=== PATIENT | female | born 1965 | race Caucasian/White ===

== ENCOUNTER 2018-11-25 12:17 | Emergency (ER) | payer OTHER ==
[2018-11-25 12:39] VITALS: RESP 18
[2018-11-25] MEDS ORDERED: KETOROLAC 30 MG/ML 1 ML VIAL IVP STA (13:05)
--- NOTE | 2018-11-25 13:11 | ED ---
General Adult HPI - General Chief complaint: Recheck/Abnormal Lab/Rx Stated complaint: high blood pressure Time Seen by Provider: 11/25/18 12:50 Source: patient Mode of arrival: ambulatory Limitations: no limitations - History of Present Illness Initial comments: Patient presents with a chief complaint of right eye watering, and periorbital edema. Patient states that she has been having mild headaches over this eye for about the last 2 weeks. She states that since Monday, the eye watering and swelling getting worse. She cannot identify an inciting incident. There are no aggravating or alleviating factors. Timing is intermittent. Patient also states that she is having some visual changes however she attributes this to her watering eye. She states it is worse in the morning that resolves throughout the day. She denies any sick contacts, she denies chest pain, shortness of breath, nausea or vomiting. Patient was initially seen at [facility] both transferred to this hospital because she had a hypertensive blood pressure reading. She was told it was 200/100, in the emergency department today she is mildly hypertensive with a blood pressure of 165 systolic, heart rate of 120 however the patient is very anxious appearing. - Related Data Home Medications Medication Instructions Recorded Confirmed Aloe Vera 25 mg PO DAILY 11/25/18 11/25/18 Ascorbic Acid [Vitamin C] 1,000 mg PO DAILY 11/25/18 11/25/18 Biotin 5 mg PO DAILY 11/25/18 11/25/18 Calcium Carbonate [Calcium] 600 mg PO DAILY 11/25/18 11/25/18 Ferrous Sulfate [Iron (65 MG 325 mg PO DAILY 11/25/18 11/25/18 Elemental)] Previous Rx's Medication Instructions Recorded Ciprofloxacin-Hc Otic Susp [Cipro 1 drops RIGHT EYE Q3H 5 Days #1 11/25/18 Hc Otic Suspension] bottle Allergies Allergy/AdvReac Type Severity Reaction Status Date / Time No Known Allergies Allergy Verified 11/25/18 13:14 Review of Systems ROS Statement: Those systems with pertinent positive or pertinent negative responses have been documented in the HPI. ROS Other: All systems not noted in ROS Statement are negative. Eyes: Reports: eye pain, eye discharge, vision change Neurological: Reports: headache Past Medical History Past Medical History: No Reported History History of Any Multi-Drug Resistant Organisms: None Reported Past Surgical History: No Surgical Hx Reported Past Psychological History: No Psychological Hx Reported Smoking Status: Current every day smoker Past Alcohol Use History: Daily Past Drug Use History: None Reported General Exam Limitations: no limitations General appearance: alert, in no apparent distress, anxious Head exam: Present: atraumatic, normocephalic Eye exam: Present: PERRL, EOMI, conjunctival injection, periorbital swelling. Absent: nystagmus, periorbital tenderness Pupils: Present: normal accommodation, other (there is erythema and chemosis of the right eye, no pain with EOM, vision grossly intact. drainage is clear, no evidence of purulence ) ENT exam: Present: normal exam, mucous membranes moist, normal external ear exam, other (bilateral earwax impactions ) Neck exam: Present: normal inspection. Absent: tenderness Respiratory exam: Present: normal lung sounds bilaterally. Absent: respiratory distress, wheezes Cardiovascular Exam: Present: normal rhythm, tachycardia GI/Abdominal exam: Present: soft. Absent: distended, tenderness Rectal exam: Present: deferred Extremities exam: Present: normal inspection Back exam: Present: normal inspection Neurological exam: Present: alert, oriented X3, CN II-XII intact, normal gait Psychiatric exam: Present: normal affect, normal mood Skin exam: Present: warm, dry, intact Course Vital Signs 11/25/18 11/25/18 11/25/18 12:35 14:10 15:22 Temperature 98.4 F Pulse Rate 120 H 104 H 86 Respiratory 18 18 18 Rate Blood Pressure 165/89 156/98 175/95 O2 Sat by Pulse 98 98 98 Oximetry Medical Decision Making - Medical Decision Making Patient presents with a chief complaint of eye watering periorbital edema. On initial evaluation, patient was tachycardic and mildly hypertensive likely secondary to anxiety. Patient was sent over from [facility] for hypertension. She reports her blood pressure was 200/100, very much improved without intervention in the emergency department. History and physical examination is most consistent with viral conjunctivitis however given timeframe, patient will be evaluated basic labs, computed tomography scan of the orbits to rule out infection. 3:36 PM lab evaluation of this patient is unremarkable. WBCs are 13,000. CT evaluation of the head and orbits shows no acute process. repeat neuro exam is unchanged, EOM intact, pupils equal round and reactive. considered cavernous venous thrombosis however at this point exam seems benign, labs do not support infection, and CT exam is normal. I discussed concerning signs and symptoms that should prompt immediate return to the ED with the patient, her fiance, and her son. she verbalizes understanding. she was prescribed cipro drops. patient referred to ophthalmology, and primary care. follow up in 1-2 days. - Lab Data Result diagrams: 11/25/18 13:30 11/25/18 13:30 Lab Results 11/25/18 11/25/18 Range/Units 13:30 13:30 WBC 13.0 H (3.8-10.6) k/uL RBC 4.28 (3.80-5.40) m/uL Hgb 12.9 (11.4-16.0) gm/dL Hct 38.9 (34.0-46.0) % MCV 90.8 (80.0-100.0) fL MCH 30.2 (25.0-35.0) pg MCHC 33.3 (31.0-37.0) g/dL RDW 14.1 (11.5-15.5) % Plt Count 405 (150-450) k/uL Neutrophils % 85 % Lymphocytes % 9 % Monocytes % 4 % Eosinophils % 1 % Basophils % 0 % Neutrophils # 11.1 H (1.3-7.7) k/uL Lymphocytes # 1.2 (1.0-4.8) k/uL Monocytes # 0.5 (0-1.0) k/uL Eosinophils # 0.1 (0-0.7) k/uL Basophils # 0.0 (0-0.2) k/uL Sodium 141 (137-145) mmol/L Potassium 4.4 (3.5-5.1) mmol/L Chloride 108 H (98-107) mmol/L Carbon Dioxide 22 (22-30) mmol/L Anion Gap 11 mmol/L BUN 10 (7-17) mg/dL Creatinine 0.94 (0.52-1.04) mg/dL Est GFR (CKD-EPI)AfAm 80 (>60 ml/min/1.73 sqM) Est GFR (CKD-EPI)NonAf 70 (>60 ml/min/1.73 sqM) Glucose 99 (74-99) mg/dL Calcium 10.3 H (8.4-10.2) mg/dL Disposition Clinical Impression: Conjunctivitis, Hypertension Disposition: HOME SELF-CARE Condition: Good Prescriptions: Ciprofloxacin-Hc Otic Susp [Cipro Hc Otic Suspension] 1 drops RIGHT EYE Q3H 5 Days #1 bottle Is patient prescribed a controlled substance at d/c from ED?: No Referrals: None,Stated [Primary Care Provider] - 1-2 days Shannon Gayle MD [STAFF PHYSICIAN] - 1-2 days Gordon Lopez MD [STAFF PHYSICIAN] - 1-2 days
[2018-11-25 13:49] LABS: Basophils % (A) 0 %; Eosinophils # (A) 0.1 k/uL (0-0.7); Eosinophils % (A) 1 %; HCT 38.9 % (34.0-46.0); HGB 12.9 gm/dL (11.4-16.0); Lymphocytes # (A) 1.2 k/uL (1.0-4.8); Lymphocytes % (A) 9 %; MCH 30.2 pg (25.0-35.0); MCHC 33.3 g/dL (31.0-37.0); MCV 90.8 fL (80.0-100.0); Mean Platelet Volume 7.2; Monocytes # (A) 0.5 k/uL (0-1.0); Monocytes % (A) 4 %; Neutrophils # (A) 11.1 k/uL (1.3-7.7); Neutrophils % (A) 85 %; Platelet Count 405 k/uL (150-450); RBC 4.28 m/uL (3.80-5.40); RDW 14.1 % (11.5-15.5)
[2018-11-25 14:04] LABS: Calcium 10.3 mg/dL (8.4-10.2)
[2018-11-25 14:06] LABS: Potassium 4.4 mmol/L (3.5-5.1)
--- NOTE | 2018-11-25 15:20 | CT ---
EXAMINATION TYPE: CT brain wo con, CT orbits w con DATE OF EXAM: 11/25/2018 HISTORY: Pt c/o headache, sent by [facility] for 200/100 bp. Pt also has RT eye swelling and pain CT DLP: 1068.4 (accession [id number]), 232.6 (accession [id number]) mGycm. Automated Exposure Control fo r Dose Reduction was Utilized. TECHNIQUE: CT scan of the head is performed without contrast. CT of orbits is performed with IV contr ast. COMPARISON: None. FINDINGS: There is no acute intracranial hemorrhage or midline shift identified. Ventricles and sul ci are normal in size. Lu-white matter differentiation is fairly well maintained. The calvarium is intact. Orbital floors and bradshaw are intact. The globes are intact bilaterally. Intraconal fat is preserved b ilaterally. Facial bones are intact. Visualized portion of the [place] shows no obvious aneu rysm. IMPRESSION: 1. No acute intracranial hemorrhage or midline shift. 2. No suspicious intraorbital mass or findings.
[2018-11-25 16:22] VITALS: BP 140/80; PULSE 80; TEMP 98
== END 2018-11-25 16:27 | disposition home or self-care (01) ==
LOC: EC 12:17
DX: I10 Essential (primary) hypertension (principal); H10.9 Unspecified conjunctivitis; F17.200 Nicotine dependence, unspecified, uncomplicated
CPT/HCPCS: 36415; 80048; 85025; 70450; 70481; 99284; 96374; J1885; Q9967

== ENCOUNTER → 2019-02-22 | Outpatient (CLI) | payer BC ==
--- NOTE | 2019-02-22 16:14 | XR ---
Left RIBS and chest x-ray HISTORY: Chest pain and difficulty breathing 4 views of the left ribs, 2 views the chest are submitted, no comparison Cardiomediastinal silhouette, pulmonary vascularity and babatunde within normal limits. No evident airspac e disease, pneumothorax, or pleural effusion. No evident displaced rib fracture. There is a mild spin al curvature. IMPRESSION: No acute abnormality.
== END | disposition home or self-care (01) ==
LOC: RADXRMAIN 10:36
PROVIDERS: ATTEND Nurse Practitioner Adult Health
DX: R07.9 Chest pain, unspecified (principal); R06.00 Dyspnea, unspecified; R10.12 Left upper quadrant pain
CPT/HCPCS: 71046

== ENCOUNTER → 2022-05-04 | Outpatient (CLI) | payer BC ==
[2022-05-04 18:14] LABS: Basophils # (A) 0.02 X 10*3/uL (0.00-0.10); Basophils % (A) 0.4 %; Eosinophils # (A) 0.04 X 10*3/uL (0.04-0.35); Eosinophils % (A) 0.8 %; HCT 29.8 % (37.2-46.3); HGB 9.9 g/dL (12.0-15.0); Immature Grans, Automated 0.2 %; Lymphocytes # (A) 0.69 X 10*3/uL (0.90-5.00); Lymphocytes % (A) 14.1 %; MCHC 33.2 g/dL (32.0-37.0); MCV 108.4 fL (80.0-97.0); Mean Platelet Volume 10.2 fL (9.5-12.2); Monocytes # (A) 0.34 X 10*3/uL (0.20-1.00); NRBC Per 100 WBC 0 /100 WBCS (0.0-0.0); Neutrophils # (A) 3.78 X 10*3/uL (1.80-7.70); Neutrophils % (A) 77.5 %; Platelet Count 367 X 10*3/uL (140-440); RBC 2.75 X 10*6/uL (4.10-5.20); RDW 15.7 % (11.5-14.5); WBC 4.88 X 10*3/uL (4.50-10.00)
[2022-05-04 18:22] LABS: Erythrocyte Sedimentation Rate 13 mm/Hr (0-30)
[2022-05-04 19:19] LABS: % Iron Saturation 28.69 (12.00-45.00); ALT 19 U/L (8-44); AST 13 U/L (13-35); African American GFR (CKD) 72.4 (60.0-200.0); Albumin 4.6 g/dL (3.8-4.9); Albumin/Globulin Ratio 2.09 (1.60-3.17); Alkaline Phosphatase 62 U/L (41-126); Bilirubin, Conjugated <0.20 mg/dL (0.20-0.40); Calcium 9.4 mg/dL (8.7-10.3); Carbon Dioxide 24.7 mmol/L (20.0-27.5); Chloride 106 mmol/L (96-109); Globulin 2.2 g/dL (1.6-3.3); Glucose 106 mg/dL (70-110); Iron 95 ug/dL (50-170); Non-African American GFR(CKD) 62.5 (60.0-200.0); Potassium 4.4 mmol/L (3.5-5.5); Sodium 141 mmol/L (135-145); Total Iron Binding Capacity 330 ug/dL (228-460); Total Protein 6.8 g/dL (6.2-8.2)
== END | disposition home or self-care (01) ==
LOC: LABWHC1 12:29
DX: D53.9 Nutritional anemia, unspecified (principal); D63.8 Anemia in other chronic diseases classified elsewhere; D61.9 Aplastic anemia, unspecified
CPT/HCPCS: 36415; 80053; 82248; 82607; 82668; 82728; 82746; 83540; 83550; 84466; 85025; 85652; 86038; 86039

== ENCOUNTER → 2022-05-04 | Outpatient (CLI) | payer BC ==
--- NOTE | 2022-05-04 13:53 | XR ---
EXAMINATION TYPE: XR knee 4V LT DATE OF EXAM: 05/04/2022 COMPARISON: NONE HISTORY: Palpable abnormality TECHNIQUE: Three views are submitted. FINDINGS: There is a moderate sized patellar bursal fluid collection. There is mild narrowing of the patellofem oral joint and medial compartment knee joint. There is sclerosis and lucency involving the medial fem oral condyle. No acute fracture or dislocation. Soft tissue posterior to the knee joint. IMPRESSION: 1. 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 2. Mild osteoarthritis. 3. Moderate amount of fluid suprapatellar bursa. 4. Soft tissue fullness posterior to the knee could be associated with a popliteal fossa cyst which a lso could be evaluated at the time of the MRI.
== END | disposition home or self-care (01) ==
LOC: RADXRMAIN 12:52
PROVIDERS: ATTEND Internal Medicine
DX: M17.12 Unilateral primary osteoarthritis, left knee (principal); M25.562 Pain in left knee

== ENCOUNTER → 2022-05-11 | Outpatient (CLI) | payer BC ==
--- NOTE | 2022-05-12 17:19 | BD ---
EXAMINATION TYPE: Axial Bone Density DATE OF EXAM: 05/11/2022 COMPARISON: BASELINE FOR [facility], PREVIOUS AT [facility] CLINICAL HISTORY: 57 years year old Female. ICD-10 CODE: Z78.0 ASYMPT MENOPAUSAL STATE Height: 64.5" Weight: 165.5 FRAX RISK QUESTIONS: Alcohol (3 or more units per day): NO Family History (Parent hip fracture): NO Glucocorticoids (More than 3mos): YES, IN 2018 FOR ENTIRE YEAR, 2020 FROM NOVEMBER TO MARCH FOR AUTOIM MUNE DISORDER (Ex: prednisone, prednisolone, methylprednisolone, dexamethasone, and hydrocortisone). History of Fracture in Adulthood: YES, LEFT ANKLE Secondary Osteoporosis: 1. Type 1 Diabetes: NO 2. Hyperthyroidism: NO 3. Menopause before 45: NO 4. Malnutrition: NO 5. Chronic liver disease: NO Rheumatoid Arthritis: NO Current Tobacco Use: NO RISK FACTORS HISTORY OF: Family History of Osteoporosis: YES, MOTHER AND MATERNAL GRANDMOTHER Active: YES Diet low in dairy products/other sources of calcium: YES Postmenopausal woman: YES Lost more than 2 inches in height since high school: NO Frequent falls: NO Poor Health: FAIR Hyperparathyroidism: NO Adrenal Insufficiency: NO MEDICATIONS: Prednisone or other steroids: YES How Long: ON AND OFF NEEDED FOR AUTOIMMUNE DISEASE Additional Medications: CALCIUM WITH VIT D, IMMURAN (FOR AUTOIMMUNE), FOLIC ACID, BLOOD PRESSURE, B12 , PRILOSEC, ZINC Additional History: AUTOIMMUNE DISEASE EXAM MEASUREMENTS: Bone mineral densitometry was performed using the [employer] System. Bone mineral density as measured about the Lumbar spine is: ----- L1-L4(G/cm2): 1.292 T Score Values are as follows: ----- L1: 0.5 ----- L2: 1.1 ----- L3: 1.0 ----- L4: 0.9 ----- L1-L4: 0.9 Bone mineral density about the R hip (g/cm2): 0.629 Bone mineral density about the L hip (g/cm2): 0.670 T Score values are as follows: -----R Neck: -2.9 -----L Neck: -2.6 -----R Total: -2.2 -----L Total: -2.1 FRAX%s: The graph provided illustrates a 22.0% chance for a major osteoporotic fx and a 11.0% chance for the hips probability for fx in 10 years time. IMPRESSION: Osteoporosis (T Score less than -2.5). There is increased fracture risk and therapy is usually indicated based on age. Re-Screen 1-2 years. NOTE: T-SCORE=SD OF THE YOUNG ADULT MEAN.
--- NOTE | 2022-05-12 19:16 | MM ---
Reason for Exam: Screening (asymptomatic). Last mammogram was performed 21 year(s) and 7 month(s) ago. Patient History: Menarche at age 16. Postmenopausal. Sister had breast cancer at or over age 50. Mother had breast cancer at or over age 50. Risk Values: Charlnee 5 year model risk: 5.6%. NCI Lifetime model risk: 30.0%. Prior Study Comparison: 09/13/2000 Bilateral Diagnostic Mammogram, [facility]. Tissue Density: The breast tissue is heterogeneously dense. This may lower the sensitivity of mammography. Findings: Analyzed By CAD. No significant mass, suspicious microcalcification, or other discrete abnormality is seen. Overall Assessment: Negative, BI-RAD 1 Management: Screening Mammogram of both breasts in 1 year. Given the patient's five-year and lifetime risk for the development of breast cancer, recommend referral to a breast surgeon for discussion of genetic screening and high risk follow-up including future screening with alternating mammogram and breast MRI. Patient should continue monthly self breast exams. A negative mammogram should not preclude additional follow-up of suspicious palpable abnormalities. Electronically signed and approved by: Johanny Melo M.D. Radiologist
== END | disposition home or self-care (01) ==
LOC: RADMAMWWP 15:18
PROVIDERS: ATTEND Internal Medicine
DX: Z12.31 Encounter for screening mammogram for malignant neoplasm of breast (principal); M81.0 Age-related osteoporosis without current pathological fracture; Z78.0 Asymptomatic menopausal state; Z80.3 Family history of malignant neoplasm of breast
CPT/HCPCS: 77063; 77067; 77080

== ENCOUNTER → 2022-05-24 | Outpatient (CLI) | payer BC ==
--- NOTE | 2022-05-24 16:15 | MR ---
EXAMINATION TYPE: MR knee LT wo con DATE OF EXAM: 05/24/2022 COMPARISON: Outside left knee x-rays May 04, 2022 HISTORY: OSTEOCHONDRITIS DISSECANS, LEFT KNEE TECHNIQUE: Multiplanar, multisequence images of the knee is performed without IV contrast. FINDINGS: MEDIAL MENISCUS: Anterior and posterior horns are intact without tear. LATERAL MENISCUS: Anterior and posterior horns are intact without tear. CRUCIATE LIGAMENTS: The anterior and posterior cruciate ligaments are intact and unremarkable. COLLATERAL LIGAMENTS: The medial collateral ligament and lateral collateral ligament complex are inta ct. Mild fluid signal surrounds medial collateral ligament. EXTENSOR MECHANISM: Visualized quadriceps and patellar tendons are intact. EFFUSION: There is large-sized suprapatellar or joint effusion. POPLITEAL CYST: Moderate to large sized septated popliteal/castellanos cyst measures 5.9 cm long axis sagit wilmar image 23. TRICOMPARTMENT SPACES: Mild tricompartment joint space loss. No significant spurring. CARTILAGE: Tricompartmental articular cartilage is fairly well maintained. BONE MARROW SIGNAL: Heterogeneous serpiginous decreased T1 and heterogeneous T2 signal involves the p osterior aspect of the distal femoral condyles bilaterally as more prominent in the right knee versus left knee corresponds to subtle sclerosis on plain films. OTHER: No additional significant abnormality is appreciated. IMPRESSION: 1. Confirmation of moderate to large-sized suprapatellar joint effusion. 2. Moderate to large sized septated popliteal cyst is confirmed. 3. Mild tricompartment degenerative changes. 4. Mild MCL sprain injury. 5. MRI and plain films findings suggest bilateral avascular necrosis involving the posterior distal f emoral condyles greater medially versus laterally. Correlate for etiology and/or risk factors.
== END | disposition home or self-care (01) ==
LOC: RADMRIMAIN 15:26
PROVIDERS: ATTEND Internal Medicine
DX: S83.412A Sprain of medial collateral ligament of left knee, initial encounter (principal); M93.262 Osteochondritis dissecans, left knee; M17.12 Unilateral primary osteoarthritis, left knee; M71.22 Synovial cyst of popliteal space [Baker], left knee; M25.462 Effusion, left knee

== ENCOUNTER → 2022-06-07 | Outpatient (CLI) | payer BC ==
[2022-06-07 22:42] LABS: Basophils # (A) 0.06 X 10*3/uL (0.00-0.10); Eosinophils # (A) 0.06 X 10*3/uL (0.04-0.35); HCT 35.3 % (37.2-46.3); HGB 11.5 g/dL (12.0-15.0); Immature Grans, Automated 0.3 %; Lymphocytes # (A) 0.85 X 10*3/uL (0.90-5.00); MCH 35.6 pg (27.0-32.0); MCHC 32.6 g/dL (32.0-37.0); MCV 109.3 fL (80.0-97.0); Mean Platelet Volume 10.7 fL (9.5-12.2); Monocytes # (A) 0.42 X 10*3/uL (0.20-1.00); Monocytes % (A) 6.9 %; NRBC Per 100 WBC 0 /100 WBCS (0.0-0.0); Neutrophils # (A) 4.66 X 10*3/uL (1.80-7.70); Neutrophils % (A) 76.8 %; Platelet Count 328 X 10*3/uL (140-440); RBC 3.23 X 10*6/uL (4.10-5.20); RDW 14.1 % (11.5-14.5); WBC 6.07 X 10*3/uL (4.50-10.00)
[2022-06-07 22:55] LABS: Erythrocyte Sedimentation Rate 30 mm/Hr (0-30)
[2022-06-08 00:49] LABS: % Iron Saturation 23.17 (12.00-45.00); African American GFR (CKD) 76.5 (60.0-200.0); Albumin 4.8 g/dL (3.8-4.9); Albumin/Globulin Ratio 2.1 (1.60-3.17); Anion Gap 15.7 mmol/L (10.00-18.00); BUN/Creat Ratio 17.26 Ratio (12.00-20.00); Blood Urea Nitrogen 16.5 mg/dL (9.0-27.0); Calcium 9.5 mg/dL (8.7-10.3); Carbon Dioxide 19.6 mmol/L (20.0-27.5); Globulin 2.3 g/dL (1.6-3.3); Potassium 4.5 mmol/L (3.5-5.5); Total Bilirubin 0.4 mg/dL (0.30-1.20)
[2022-06-08 13:36] LABS: ANA Pattern Speckled
== END | disposition home or self-care (01) ==
LOC: LABWHC1 15:27
DX: D61.9 Aplastic anemia, unspecified (principal); D63.8 Anemia in other chronic diseases classified elsewhere; D53.9 Nutritional anemia, unspecified
CPT/HCPCS: 36415; 80053; 82607; 82668; 82728; 82746; 83540; 83550; 85025; 85652; 86038; 86039

== ENCOUNTER → 2022-08-17 | Outpatient (CLI) | payer BC ==
[2022-08-17 18:13] LABS: Blood Urea Nitrogen 15.4 mg/dL (9.0-27.0)
[2022-08-17 18:34] LABS: HCT 34.2 % (37.2-46.3); HGB 11.1 g/dL (12.0-15.0); MCH 34.2 pg (27.0-32.0); MCHC 32.5 g/dL (32.0-37.0); MCV 105.2 fL (80.0-97.0); Mean Platelet Volume 10.5 fL (9.5-12.2); NRBC Per 100 WBC 0 /100 WBCS (0.0-0.0); Platelet Count 309 X 10*3/uL (140-440); RBC 3.25 X 10*6/uL (4.10-5.20); RDW 15.9 % (11.5-14.5); WBC 5.61 X 10*3/uL (4.50-10.00)
[2022-08-17 19:08] LABS: Basophils # (A) 0.03 X 10*3/uL (0.00-0.10); Basophils % (A) 0.5 %; Eosinophils # (A) 0.12 X 10*3/uL (0.04-0.35); Eosinophils % (A) 2.1 %; Immature Grans, Automated 0.5 %; Lymphocytes # (A) 0.56 X 10*3/uL (0.90-5.00); Monocytes # (A) 0.49 X 10*3/uL (0.20-1.00); Monocytes % (A) 8.7 %; Neutrophils # (A) 4.38 X 10*3/uL (1.80-7.70); Neutrophils % (A) 78.2 %
== END | disposition home or self-care (01) ==
LOC: LABWHC1 11:35
PROVIDERS: ATTEND Internal Medicine
DX: Z51.81 Encounter for therapeutic drug level monitoring (principal)
CPT/HCPCS: 36415; 82565; 84450; 84460; 84520; 85025

== ENCOUNTER → 2023-06-13 | Outpatient (CLI) | payer BC ==
[2023-06-13 20:48] LABS: Chol/HDL Ratio 2.54 Ratio
--- NOTE | 2023-06-14 14:49 | MM ---
Reason for Exam: Screening (asymptomatic). Last mammogram was performed 1 year(s) and 2 month(s) ago. Patient History: Menarche at age 16. Postmenopausal. Sister had breast cancer at or over age 50. Mother had breast cancer at or over age 50. Risk Values: Charlene 5 year model risk: 5.8%. NCI Lifetime model risk: 29.4%. Prior Study Comparison: 09/13/2000 Bilateral Diagnostic Mammogram, [facility]. 05/11/2022 Bilateral MG 3D screening mammo w/cad, [facility]. Tissue Density: The breast tissue is heterogeneously dense. This may lower the sensitivity of mammography. Findings: Analyzed By CAD. There is no suspicious group of microcalcifications or new suspicious mass. Overall Assessment: Negative, BI-RAD 1 Management: Screening Mammogram of both breasts in [address] [facility] will attempt to contact patient to return for supplemental views and ultrasound if indicated. Patient should continue monthly self-breast exams. A clinical breast exam by your physician is recommended on an annual basis. This exam should not preclude additional follow-up of suspicious palpable abnormalities. Note on Charlene scores and lifetime risk: 1. A Charlene score greater than 3% is considered moderate risk. If this is the case, consider specialist referral to assess eligibility for a risk reducing agent. 2. If overall lifetime risk for the development of breast cancer is 20% or higher, the patient may qualify for future screening with alternating mammogram and breast MRI. Electronically signed and approved by: Gabo Washington DO
== END | disposition home or self-care (01) ==
LOC: RADMAMWWP 13:21
PROVIDERS: ATTEND Internal Medicine
DX: Z12.31 Encounter for screening mammogram for malignant neoplasm of breast (principal); I10 Essential (primary) hypertension; M81.0 Age-related osteoporosis without current pathological fracture; Z80.3 Family history of malignant neoplasm of breast; Z78.0 Asymptomatic menopausal state
CPT/HCPCS: 77063; 77067; 80061; 82306